=== PATIENT | female | born 1975 | race Hispanic/Latino ===

== ENCOUNTER 2018-04-04 07:40 | Day surgery (SDC) | payer OTHER ==
[2018-04-04 08:57] LABS: BUN/Creatinine Ratio 18; Blood Urea Nitrogen 11 mg/dL (7-17); Calcium 8.6 mg/dL (8.4-10.2); Hemolysis Index 10
[2018-04-04] MEDS ORDERED: NACL 0.9% 500 ML 500 ML IV SCH (09:00)
[2018-04-04] MEDS ORDERED: ECOTRIN PO ONE (10:00)
[2018-04-04 10:19] LABS: INR 0.89 (0.87-1.13)
[2018-04-04] MEDS ORDERED: NITROGLYCERIN SYRINGE 3 ML ONE (11:11)
[2018-04-04] MEDS ORDERED: HEPARIN/NS 5000 UNIT/500ML(CATH LAB) 1,000 ML IR ONE (11:11)
[2018-04-04] MEDS ORDERED: HEPARIN 10,000 UNITS/10 ML ONE (11:11)
[2018-04-04] MEDS ORDERED: CALAN ONE (11:11)
[2018-04-04] MEDS ORDERED: XYLOCAINE 2% INFILTRATI ONE (11:11)
[2018-04-04] MEDS ORDERED: SUBLIMAZE ONE (11:12)
[2018-04-04] MEDS ORDERED: VERSED ONE (11:12)
--- NOTE | 2018-04-04 12:19 | Cardiac Catherization Report ---
LEFT HEART CATHETERIZATION ORDERING PHYSICIAN: Tello Stevenson MD CLINICAL INFORMATION: This is a 43-year-old with morbid obesity, has recurrent anginal symptoms with exertion with a strong family history of premature CAD, stress test suboptimal. He is here for left heart cath. Left heart cath done with moderate sedation. Total sedation time was 11 minutes. Started at 11:49 a.m., finished at 12:01 a.m. The patient received 1 mg Versed, 50 mcg of fentanyl. Left heart catheterization performed with right radial artery, sterile technique, local anesthesia, 6-[place] radial sheath inserted. Left system engaged with JL3.5 catheter. Left main large and patent, bifurcates into large LAD, is patent from proximally and distally with mild tortuosity. Diagonal 1 and diagonal 2 are medium caliber vessel is patent. Circumflex and AV groove is large caliber vessel is patent. High OM1 is medium caliber vessel is patent. OM2 is medium caliber vessel is patent. OM3 small caliber vessel is patent. RCA engaged with JR4 is a large dominant vessel, patent from proximally and distally. PDA and PLV are small caliber vessels are patent. LV gram done in [place]URKM[place] view shows normal LV function. LVP of 8 mmHg, LV is 110 mmHg. Aortic is 105/59. No gradient across the aortic valve on pullback. 5-[place] catheters all taken over guidewire, 6-[place] radial sheath was discontinued and radial band applied. No hematoma, no bleeding. SUMMARY: 1. Patent coronaries, left main patent, LAD patent, circ patent. OM1 and OM2 patent, RCA patent. 2. Normal LV function. 3. Continue risk factor modification. Discussed this in detail with the patient and the patient's family. JOB# [id number] SARTHAK/DAXA
--- NOTE | 2018-04-04 12:48 | Short Stay Summary ---
Short Stay Documentation Date of service: 04/04/18 - History H&P: obtained from office - Allergies and Medications Current Medications: Allergies bupropion [From Wellbutrin] Allergy (Verified 04/04/18 09:11) Swelling Penicillins Allergy (Verified 04/04/18 09:11) Hives Home Medications Medication Instructions Recorded Confirmed Last Taken Type Duloxetine HCl [DULoxetine] 60 mg PO DAILY 04/04/18 04/04/18 04/03/18 History 60mg Esomeprazole Magnesium [Heartburn 20 mg PO DAILY 04/04/18 04/04/18 04/03/18 History Treatment] 20mg Lisinopril [Zestril TAB] 10 mg PO DAILY 04/04/18 04/04/18 04/03/18 History 10mg Potassium Chloride [K-Tab ER] 20 meq PO TID 04/04/18 04/04/18 04/03/18 History 20meq amLODIPine [Norvasc] 5 mg PO DAILY 04/04/18 04/04/18 04/03/18 History 5mg Active Medications Sodium Chloride (Nacl 0.9% 500 Ml) 500 mls @ 50 mls/hr IV DIRECT ABDULLAHI Stop: 04/04/18 18:59 Last Admin: 04/04/18 09:08 Dose: 50 mls/hr Documented by: - Brief post op/procedure progress note Date of procedure: 04/04/18 Pre-op diagnosis: chest pain Post-op diagnosis: same Procedure: see report Anesthesia: local Estimated blood loss: none Pathology: none - Disposition Condition at discharge: Good Disposition: DC-01 TO HOME OR SELFCARE - Discharge Diagnoses (1) Chest pain Status: Chronic Qualifiers: Chest pain type: unspecified Qualified Code(s): R07.9 - Chest pain, unspecified (2) Morbid obesity Status: Chronic (3) Hypertension Status: Chronic Qualifiers: Hypertension type: essential hypertension Qualified Code(s): I10 - Essential (primary) hypertension Short Stay Discharge Plan Activity: advance as tolerated Diet: low fat, low cholesterol, low salt Wound: keep clean and dry Follow up with: SIENA BRUNO MD [Primary Care Provider] - 7 Days
[2018-04-04] MEDS ORDERED: ULTRAM PO PRN (12:53)
[2018-04-04] MEDS ORDERED: ULTRAM ONE (12:57)
[2018-04-04 14:21] VITALS: BP 134/70
== END 2018-04-04 14:58 | disposition home or self-care (01) ==
LOC: CATHLABREC 07:40
PROVIDERS: ATTEND Internal Medicine
DX: R07.9 Chest pain, unspecified (principal); I10 Essential (primary) hypertension; E66.01 Morbid (severe) obesity due to excess calories; F17.210 Nicotine dependence, cigarettes, uncomplicated; K21.9 Gastro-esophageal reflux disease without esophagitis; F32.9 Major depressive disorder, single episode, unspecified; F41.9 Anxiety disorder, unspecified; Z98.890 Other specified postprocedural states; Z88.0 Allergy status to penicillin; Z79.899 Other long term (current) drug therapy; Z79.01 Long term (current) use of anticoagulants; Z68.39 Body mass index [BMI] 39.0-39.9, adult; Z98.891 History of uterine scar from previous surgery; Z88.8 Allergy status to other drugs, medicaments and biological substances
CPT/HCPCS: 36415; 80048; 85610; 85730; 93005; 93010; 93458; 99156; C1894; J1644; J2250; J3010; J7040; Q9967